=== PATIENT | female | born 1945 | race Caucasian/White ===

== ENCOUNTER → 2024-11-02 11:15 | Outpatient (REF) | payer OTHER, SELFPAY ==
[2024-11-02 12:02] LABS: Hematocrit 42.2 % (37.0-47.0); Hemoglobin 13.9 g/dL (12.0-16.0); Mean Corp Hgb Conc. 32.9 g/dL (33.0-37.0); Mean Corpuscular Volume 97.7 fL (81.0-99.0); Nucleated Red Blood Cells % 0 %; Platelet Count 217 10^3/uL (130-400); Red Cell Dist. Width 12.4 % (11.5-14.5)
[2024-11-02 12:54] LABS: Blood Urea Nitrogen 13 mg/dl (7-17); Calcium 10.2 mg/dl (8.4-10.2); Carbon Dioxide 28 mmol/L (22-30); Chloride 104 mmol/L (98-107); Glucose 97 mg/dl (70-99); Potassium 5.1 mmol/L (3.5-5.1); Sodium 139 mmol/L (135-145); eGFR > 60.00
== END ==
LOC: REG 11:15
PROVIDERS: ATTENDING PHYSICIAN Thoracic Surgery (Cardiothoracic Vascular Surgery); FAMILY PHYSICIAN Internal Medicine
DX: I35.0 Nonrheumatic aortic (valve) stenosis (principal); Z01.810 Encounter for preprocedural cardiovascular examination
CPT/HCPCS: 36415; 80048; 85025

== ENCOUNTER → 2024-11-08 09:28 | Outpatient (REF) | payer OTHER, SELFPAY | LOC: RAD 09:28 | PROVIDERS: ATTENDING PHYSICIAN Nurse Practitioner Adult Health | DX: I35.0 Nonrheumatic aortic (valve) stenosis (principal) | CPT/HCPCS: 74174; 75572; Q9967 ==

== ENCOUNTER 2024-11-20 07:16 | Day surgery (SDC) | payer OTHER, SELFPAY ==
[2024-11-20 07:35] VITALS: BMI 27.6
[2024-11-20 07:36] VITALS: BP 129/68
[2024-11-20] MEDS: LOW STRENGTH ASPIRIN 81 MG PO (08:23)
[2024-11-20] MEDS: NSS 205 ML IV (08:25)
[2024-11-20 10:10] VITALS: BP 125/70
[2024-11-20 10:41] VITALS: BP 128/65
[2024-11-20 11:11] VITALS: BP 110/67
[2024-11-20 11:41] VITALS: BP 129/67
[2024-11-20 11:58] VITALS: BP 140/66
--- NOTE | 2024-11-20 20:06 | ITS.CL.PN ---
[employer] - Procedure Note
Procedure
Procedure Note:
CARDIAC CATHETERIZATION REPORT
Date of Procedure: 11/20/2024
Referring: Dr. Elvis Leavitt MD
Indication: Symptomatic severe aortic valve stenosis
PROCEDURE(S)
1. left heart catheterization
2. coronary angiography
ACCESS: 6F right radial artery (closure: radial band)
CATHETERS
1. 6F JR4
2. 6F JL3.5
MODERATE SEDATION: 25 minutes of moderate sedation was utilized. An independent veterinary medical officer was present to assist with and help manage the patient's level of consciousness and physiologic status.
HEMODYNAMIC DATA
LV 183/13 (EDP 25) mmHg
AO 130/61 (mean 90) mmHg
CORONARY ANGIOGRAPHY
Dominance: right
LM: large, normal
LAD: large vessel giving rise to a large diagonal branch and wrapping around the apex. There is mild non-obstructive disease.
LCx: large vessel that gives rise to a small OM1/ramus, small OM2, medium-caliber OM3, small LPL1, and small LPL2. There is mild non-obstructive disease.
RCA: large vessel that gives rise to a small RPDA and several small RPL branches. There is mild non-obstructive disease.
RADIATION: dose 119 mGy; DAP 7.5 Gy*cm2; fluoroscopy time 4.8 min
CONCLUSIONS
1. non-obstructive coronary artery disease as described
2. severe aortic stenosis based on peak-peak gradient of 47 mmHg with elevated LVEDP 25 mmHg
RECOMMENDATIONS
1. primary prevention of CAD
2. proceed with TAVR
Copy to: Dr. Isaac Hutchinson (journalists and other writers); Dr. Ginna Hartmann MD (PCP)
Signed: Ector Regaan MD, PhD
== END 2024-11-20 13:20 | disposition home or self-care (01) ==
LOC: CATH 07:16
PROVIDERS: ATTENDING PHYSICIAN Student in an Organized Health Care Education/Training Program; FAMILY PHYSICIAN Internal Medicine; OTHER PHYSICIAN Internal Medicine Cardiovascular Disease
DX: I35.0 Nonrheumatic aortic (valve) stenosis (principal); I25.10 Atherosclerotic heart disease of native coronary artery without angina pectoris; I44.4 Left anterior fascicular block; E78.5 Hyperlipidemia, unspecified; K21.9 Gastro-esophageal reflux disease without esophagitis; Z82.49 Family history of ischemic heart disease and other diseases of the circulatory system; Z79.82 Long term (current) use of aspirin
CPT/HCPCS: 99152; 99153; C1894; 93005; 93458; Q9967

== ENCOUNTER 2024-12-13 09:20 | Inpatient (IN) | payer OTHER, SELFPAY ==
--- NOTE | 2024-12-04 13:16 | HPS.HSE ---
Family Physician
-
Family Physician: Ginna Rahman
Chief Complaint
-
Fatigue
PreTAVR evalution
History of Present Illness
Ginna Conley is a very pleasant 79-year-old female who has been followed by cardiology�at [facility] (Dr. Isaac Hutchinson) for severe aortic valve stenosis secondary to heavily calcified and restricted bicuspid aortic valve with a
peak/mean gradient of 72/46 mmHg. ESTHER on the echo study from 10/02/2024 came up with a measurement of 0.6 with trace aortic valve insufficiency. There was also a trace degree of mitral valve insufficiency and the report reads some mild prolapsing.
From a symptom standpoint she denies CP, palpitations, PND, orthopnea, TALBOT or edema. Her does feel she has slowed down over the past several months. They walk regularly for exercise and no longer do hills and choose to walk in the mall
instead. Patient was reviewed with the heart team on 11/16/2024 and recommended for TF TAVR utilizing a 26mm S3.
Confirmed medication list and Ms. Conley will continue 81 mg aspirin including the morning of TAVR before her [address] [facility]. Reviewed the risks of the procedure as discussed in consult with Dr. Leavitt including ppm, stroke, and
vascular injury. Allowed for and answered questions to the best of my ability.
Medical History
Past Medical History
Past Medical History: Reports Valvular Disease (aortic stenosis) and Other (hyperlipidemia, GERD, Sciatica, tinnitus, mildly dilated aorta, RBBB, LAFB)
Past Surgical History: Reports Cholecystectomy, Orthopedic (bilateral hip replacements) and Other (cataract surgery, LAURA)
Social History
Tobacco: Non-smoker
Alcohol: None
Drug: None
Personal:
Living: With Family
Employment: Retired
Family History
Family History: Early CAD and CAD
Allergies / Home Medications
Allergies reflects when Allergies were last updated in [employer].
NKDA
Home Medications with original date entered in [employer]
Acetaminophen 325 MG Tablet 2 tablet as needed Orally every 6 hrs
Aspirin 81 mg daily
Atorvastatin Calcium 20 MG Tablet 1 tablet Orally Once a day
Calcium 600 MG Tablet 1 tablet with meals Orally daily
Fiber Adult Gummies(Fiber) 2 GM Tablet Chewable as directed Orally
Multivitamin(Multiple Vitamin) - Tablet 1 tablet Orally Once a day
Premarin , Notes to Pharmacist: 0.5 oz twice a week
Allergy/Medication List:
NKDA
Review of Systems
-
History Source: Patient
A 12 point ROS was completed and negative except as noted: Yes
Constitutional: Reports Fatigue
Physical Exam
Physical Exam
General: Well Developed, Well Nourished, No Apparent Distress and Comfortable
HEENT: NormoCephalic
Respiratory: Clear
Cardiac: S1/S2, Regular Rhythm and Murmur (II/ KAUSHIK)
Breast: Deferred by me
GI: Soft, Non Tender and Non Distended
Rectal: Deferred by Provider
Genito-urinary: Deferred by me
Musculoskeletal: No Edema
Skin: Warm and Dry
Neuro: Awake, Alert, Oriented and AO x 3
Psych: Calm
Data Reviewed
-
CT Scan: Report Reviewed by me and Discussed with Physician (Reviewed with the heart team)
Medical Tests (Nuc Med, Echo, EKG etc): Report Reviewed by me and Discussed with Physician (echocardiogram and cardiac catheterization reviewed with the heart team)
Lab Data: Labs Reviewed by me
Old Records: Reviewed
Impression/Plan
-
IMPRESSION/PLAN:
Aortic stenosis: TF TAVR planned with DRs. Leavitt and Wilberto utilizing a 26 mm S3
Continue aspirin
POD#1/#30 echocardiogram
Cardiac rehab consult
Labs
-
Labs:
WBC 4.9 10^3/uL (4.8-10.8) 12/05/24 09:03
RBC 4.13 10^6/uL (4.20-5.40) L 12/05/24 09:03
Hgb 13.5 g/dL (12.0-16.0) 12/05/24 09:03
Hct 40.7 % (37.0-47.0) 12/05/24 09:03
Plt Count 217 10^3/uL (130-400) 12/05/24 09:03
Sodium 139 mmol/L (135-145) 12/05/24 09:03
Potassium 4.9 mmol/L (3.5-5.1) 12/05/24 09:03
Chloride 107 mmol/L (98-107) 12/05/24 09:03
Carbon Dioxide 27 mmol/L (22-30) 12/05/24 09:03
BUN 14 mg/dl (7-17) 12/05/24 09:03
Creatinine 0.7 mg/dL (0.6-1.0) 12/05/24 09:03
eGFR > 60.00 12/05/24 09:03
Glucose 103 mg/dl (70-99) H 12/05/24 09:03
Calcium 9.8 mg/dl (8.4-10.2) 12/05/24 09:03
Ien-Y-Knpicmqrsde Pept 176 pg/ml 12/05/24 09:03
Albumin 4.7 g/dl (3.5-5.0) 12/05/24 09:03
[2024-12-05 08:53] VITALS: BMI 28.0
[2024-12-05 10:01] LABS: Urine Character Clear (Clear)
[2024-12-05 10:02] LABS: Hematocrit 40.7 % (37.0-47.0); Hemoglobin 13.5 g/dL (12.0-16.0); Mean Corp Hgb Conc. 33.2 g/dL (33.0-37.0); Mean Corpuscular Volume 98.5 fL (81.0-99.0); Nucleated Red Blood Cells % 0 %; Platelet Count 217 10^3/uL (130-400); Red Cell Dist. Width 12.4 % (11.5-14.5)
[2024-12-05 10:10] LABS: INR 0.89; PT 12.6 Sec (11.4-14.6)
[2024-12-05 10:35] LABS: ALT (SGPT) 17 U/L (0-35); AST (SGOT) 29 U/L (14-36); Albumin 4.7 g/dl (3.5-5.0); Alkaline Phosphatase 73 U/L (38-126); Blood Urea Nitrogen 14 mg/dl (7-17); Calcium 9.8 mg/dl (8.4-10.2); Carbon Dioxide 27 mmol/L (22-30); Chloride 107 mmol/L (98-107); Estimated Creatinine Clearance 60 ml/min; Glucose 103 mg/dl (70-99); Potassium 4.9 mmol/L (3.5-5.1); Sodium 139 mmol/L (135-145); Total Protein 7.2 g/dl (6.3-8.2); eGFR > 60.00
[2024-12-05 10:43] LABS: Urine Squamous Cell 0-2 /LPF (Few); Urine Urothelial Cell 0-2 /LPF (FEW)
[2024-12-05 10:44] LABS: Urine White Cell 0-2 /HPF (0-5)
[2024-12-05 11:16] LABS: Glycohemoglobin (HgbA1c) 5.5 % (4.0-5.6)
--- NOTE | 2024-12-05 12:06 | CM ---
spoke to pt in PAT, she is prev indep, lives with her husb in a split level home with no steps toenter. she has a cane and a walker at home if needed. she is agreeable to a f/u visit for [facility] ct transitional care nurses after dc. she has the TAVR
educ book, soap and instructions. cm role explained and all questions answered. plan is for dc TAVR 12/13.
[2024-12-13] VITALS (32 sets, daily range): BP systolic 81–138; BP diastolic 42–66
--- NOTE | 2024-12-13 11:47 | W.CVOR.SURPR ---
CVOR Surgeon Immed Pre Op
-
I have examined this patient prior to performance of the scheduled procedure.
The patient's condition is unchanged from the time of the dictated/written History and
Physical and the patient is able to undergo the scheduled procedure.
TF TAVR
Full Rescue
--- NOTE | 2024-12-13 12:23 | CM ---
Chart reviewed. Patient is in the OR today. Patient is independent of ADLS, lives with her in a split level, 0 BILLIE, 0 DME but has a SPC and RW. Plan is for the patient to return home with CT Transitional RN.
[2024-12-13] MEDS: ANCEF 10 IV (12:38)
[2024-12-13 13:36] LABS: ACT-LR - POC 318 Seconds (116-155)
--- NOTE | 2024-12-13 14:03 | ITS.CL.TAVR ---
Parts Processor - TAVR Report
TAVR PRocedure
Procedure Report:
TRANSCATHETER AORTIC VALVE REPLACEMENT REPORT
Date: 12/13/2024
Referring physician: Isaac Hutchinson M.D.
Preop diagnosis: Severe aortic valve stenosis, functionally bicuspid.
Postop diagnosis: Severe aortic valve stenosis, functionally bicuspid.
Procedure: Aortic balloon valvuloplasty using a #22 Avelar valvoplasty balloon, Transcatheter aortic valve replacement (TAVR) using a #26 Avelar CASEY S3 Ultra Resilia THV.
Operators: Roscoe Ladd DO, Elvis Leavitt M.D., Mary Nice M.D., Venancio Aggarwal M.D. (PGY-2)
Findings: Severely calcified and stenotic aortic valve.
Anesthesia: Conscious sedation was provided by the anesthesia staff.
Estimated blood loss: Negligible.
Complications: None.
Condition: Stable
Procedure:
The patient was brought to the cardiac electrical laboratory technician after consent and was prepped and draped in standard sterile fashion. Conscious sedation was provided by the anesthesia staff. After a 'Time Out,' bilateral common femoral arteries and the left
common vein were access using a modified Seldinger technique with a micropuncture kit under ultrasound guidance. A 6 Libyan sheath was placed in the left femoral vein. Angiography performed through the micropuncture sheath confirmed satisfactory
arterial placement in the left common femoral artery. The micropuncture sheath was replaced with a 6Fr sheath in the left DROP HAMMER OPERATOR HELPER. Angiography through the micropuncture kit confirmed satisfactory arterial placement in the right common femoral artery.
The right DROP HAMMER OPERATOR HELPER was dilated with an 8FR dilator and preclosed with two Perc-Close devices. An 8Fr sheath was placed in the RCFA. A temporary pacing wire was advanced through the left femoral vein and into the right ventricle. The pacemaker
demonstrated good capture and was set to back up. A 5Fr pigtail catheter was advanced through the left femoral sheath and seated in the right coronary cusp. Angiography confirmed co-planar angles.
An AL-1 catheter was advanced through the 8Fr sheath, the J wire was exchanged for an Amplatz Extra-Stiff wire and the catheter and the 8 Fr sheath was removed. The 14 Fr Avelar E-Sheath was inserted over the wire and into the descending aorta.
Heparin 6000 units was given. The CASEY S3 was prepared on the back table. Orientation was confirmed by both physicians. The AL-1 catheter was re-advanced through the E-sheath to the level of the ascending aorta. The Extra-Stiff wire was
removed and a soft tip straight wire was advanced through the AL-1. The straight tip wire was used to cross the aortic valve and the catheter was advanced into the left ventricle. The straight wire was removed. Left ventricular pressure was
measured. An Amplatz Extra-Stiff wire with curved proximal end was advanced through the catheter and into the left ventricular apex. The catheter was removed. ACT was checked and confirmed to be > 250 seconds.
A #22 Avelar valvuloplasty balloon was advanced over the Extra-stiff wire and into the aortic annulus. Valvuloplasty was performed under rapid pacing with good balloon expansion. The valvuloplasty balloon was removed.
The valve was advanced over the Extrastiff wire and into the descending aorta. The balloon was pulled back and the valve was mounted on the balloon. The valve was advanced through the aortic arch and into the aortic valve annulus. The pusher
device was withdrawn to allow for balloon expansion. Low volume aortography confirmed good position of the valve. The valve was deployed during rapid ventricular pacing. Echocardiography and aortography confirmed a good result with trace aortic
valve insufficiency and a 2 mmHg mean gradient. The valve deployment system was removed. The patient demonstrated evidence of complete heart block with junctional escape. Blood pressure improved with pacing to 60 bpm. The Avelar E-Sheath was
then removed and hemostasis obtained with the two Perc-Close sutures. Final angiography demonstrated no evidence of ileofemoral dissection/perforation and good runoff below the common femoral artery. The pigtail catheter was removed. The left
femoral artery sheath was removed using a 6 Libyan Angio-Seal. The left femoral venous sheath and pacemaker were left in place for chronotropic support. At the end of the case, the patient was showing evidence of spontaneous sinus rhythm and AV
node conduction, alternating with high-grade heart block. The decision was made to maintain the pacemaker for at least the next hour to determine if the nikolski conduction would return or if pacemaker would become necessary. Protamine 30 mg was
administered.
Radiation
Dose (mGy): 117
DAP (cm2.Gy): 12.6
Fluoroscopy time (minutes): 12.8
TAVR Echo Gradient (mmHg): 2
LV (s/x, mmHg): 146/17
TAVR Cath Gradient (mmHg): Not obtained.
Conclusions:
1. Successful placement of #26 Casey S3 Ultra aortic valve via right transfemoral approach with no acute complications.
2. Complete heart block after valve deployment with partial resolution. Temporary pacemaker left in place for further evaluation.
Roscoe Ladd DO, FACC, FACP
Copy to: Isaac Hutchinson M.D., Ginna Rahman M.D.
--- NOTE | 2024-12-13 14:32 | W.PN.CT.SURG ---
CT Surgery Operative Note
-
OPERATIVE REPORT
Preoperative Diagnosis: Severe aortic valve stenosis, bicuspid aortic valve, symptomatic
Postoperative Diagnosis: Same
Procedure(s) Performed: Right trans femoral TAVR with a 26mm Avelar TAVR valve
Date of Procedure: 12/13/2024
Comorbidities:
1. Severe aortic stenosis, symptomatic
2. Bicuspid aortic valve
3. Mild MR, MVP
4. Right bundle branch block
5. Left anterior fascicular block
6. Hyperlipidemia
7. Ascending aorta very mildly dilated at 3.7 cm
Cardiac Surgeon: Elvis Leavitt MD, MS and Mary Nice MD, MPH
Prom Burn Off Operator: Barrett Ladd MD
Anesthesia: Conscious Sedation and Local Analgesia
EBL: 100 cc
Products: none
Implant: 26 mm Avelar Resilia, SN: [id number]
Indication(s) for Procedures: 79-year-old Female with symptomatic severe aortic stenosis. PG/M/46 mmHg, ESTHER 0.6. CT-TAVR protocol revealed acceptable anatomy for TAVR access and implantation.
Start time: 1258 hrs
Deployment time: 1331 hrs
End time: 1350 hrs
Radiation Dose (mGy): 117
DAP (cm2.Gy): 12.6
Fluoroscopy time (minutes): 12.8
Contrast volume (ml): 78
TAVR gradient (mmHg): 2 mmHg
Heparin Dose: 6000 units
Protamine Dose: 30 mg
Final Valve Positionin/10
LVEPD: 18 mmHG
Findings: Preoperative LVEF was 60�65% and was 60-65% following TAVR without inotropic support. Function was overall normal without regional wall motion abnormalities or dyskinesia. The aortic valve was well seated without detectable PVL and mean
gradient across the new valve was 2 mmHg. Patient with known preoperative history of right bundle branch block and left anterior fascicular block following deployment in valve patient was noted to be in complete heart block with intermittent
junctional escape rhythm therefore temporary pacing wires were left in place for monitoring and evaluation of need for permanent pacemaker. There was successful placement of 26 mm TAVR valve without acute complications.
Access:
1. Device -right INSPECTOR EXPERIMENTAL ASSEMBLY, perclose x 2
2. Pigtail -left INSPECTOR EXPERIMENTAL ASSEMBLY [+ 6Fr angioseal]
3. Transvenous Pacer -left femoral vein, left in place
Description of Procedure: The patient was taken to the lift slab operator. Their identity and procedure to be performed were verified and they were positioned supine on the lift slab operator table. Induction via conscious sedation. The patient was then prepped and
draped from chin to thigh in a sterile fashion. A preoperative time-out was performed with all members of the team present. Arterial and venous access was performed using fluoroscopy and ultrasound guidance with micropuncture and Seldinger
technique. Two perclose devices were used on the device side followed by access to the aorta with a stiff wire to facilitate E-sheath placement. Heparin was given. A stiff straight wire and AL-1 catheter was used to cross the aortic valve. An LVEDP
was measured. An ACT of >250 was achieved. A predeployment balloon valvuloplasty was performed with rapid pacing at 180 bpm using a 22 mm true sized balloon. The stiff wire was exchanged for an extra stiff coiled tip wire. The valve was prepped and
mounted on to the device carrier. We verified x 3 that the valve was mounted in the correct orientation with the skirt of the valve directed toward the tip of the device carrier. We advanced the device into the descending thoracic aorta where the
valve was then mounted onto the balloon under fluoroscopy. The device was flexed and advanced over the arch into the root and positioned across the aortic valve. Contrast fluoroscopy was used to visualize the prosthesis across the valve and to guide
positioning. A pigtail catheter in the RCC was used as a guide. We aimed to have the bottom of the device marker at the annular hinge point. The device sheath was pulled back. We performed a quick pre-deployment time out. The pacer was turned on and
had capture. Blood pressure fell accordingly, angiography was done to verify the intended final placement and the valve was deployed with 5 seconds of rapid pacing to nominal volume. The balloon was deflated and the pacer was turned down to a backup
rate, the patient was noted to be in complete heart block with intermittent junctional escape rhythm. We had recovery of vitals. The device carrier was unflexed and positioned back in the descending thoracic aorta. A transthoracic echocardiogram was
performed. The device was removed from the E-Sheath maintaining wire access followed by removal of the E-sheath as we cinched down the perclose devices. There was acceptable hemostasis. The pigtail was withdrawn into the descending/abdominal and
completion aortogram with runoff run-off angiography was performed. There was no stenosis or dissection of bilateral iliofemoral systems. The temporary pacing wires were left in place given the complete heart block, decision made to observe and
later decide if permanent pacemaker would be required. There was acceptable hemostasis of bilateral groins and manual pressure was held following wire removal. Low dose protamine was administered after checking another ACT.
All instrument, sponge, and needle counts were confirmed to be correct x 2 at the end of the operation. The patient was transferred to the cardiac intensive care unit in stable condition.
I, Dr. Mary Nice, was present, scrubbed for, and performed all critical elements of this procedure.
Mary Nice MD, MPH
Cardiothoracic Surgeon
[facility]
This operative dictation was created using the [employer] dictation system. Please excuse any grammatical, typographical, or 'sound alike' errors
[2024-12-13] MEDS: NSS 500 VEN SHEATH (14:39)
[2024-12-13] MEDS: ANCEF IV (14:40)
[2024-12-13] MEDS: LEVOPHED 250 IV (14:40)
--- NOTE | 2024-12-13 15:25 | PTCARENOTE ---
Addendum entered by Carmen España RN 12/13/24 15:56:
Correction LFV Sheath for pacing.
Original Note:
Received pt from labor crew supervisor via bed; pt AAOx3 and resting comfortably in bed; NSR on monitor and vSS; PIV x2 patent; RFV sheath with temporary pacing wire set to back up 60/20/0.8 and no pacing noted on monitor; lungs diminished; positive bowel
sounds; pure wick connected to pt and pt DTV; palpable pulses throughout; no edema noted; B/L groin sites C/D/I; see nursing documentation for further details.
--- NOTE | 2024-12-13 16:27 | PTCARENOTE ---
Pt stated 'I feel like i have to urinate however I cannot.'; bladder scanned pt for 896; straight cath x1 for 850mls of clear yellow urine; pure wick replaced; pt continues bedrest.
[2024-12-13] MEDS: ANCEF 5 IV (21:04)
[2024-12-13] MEDS: LIPITOR 20 MG PO (21:16)
[2024-12-13] MEDS: TYLENOL 650 MG PO (21:17)
--- NOTE | 2024-12-13 21:30 | PTCARENOTE ---
Report received from CHRIS Morales. Walking rounds done. BLE Vascular and Neuro checks performed per protocol and prn. See flowsheets. Pt alert, oriented x 4, awake. Equal strength x 4. No drift BUE. LLE with limb restriction due to L Fem venous sheath
and temp wire with Temp pacing-VVI. . Leg straight at all times, HOB flat. Denies numbness/tingling. Facial symmetry present. Speech clear. Pt on room air. Sats 96%. BBS present. Decreased B bases. CDB encouraged. Audible heart tones. Pt in SR.
Noted to have multiple PACs briefly at 1900 during shift change. ? AF. Some V-paced beats present. PA aware. Temp PM settings. Rate 40, mA 20, Sens 0.8. Pt normotensive. Levo gtt remains off. R groin and L groin checks with no hematoma, soft,
dressing dry, intact. BLE warm, pink. Palp DP pulses. No c/o pain. Pt turned briefly. No bruising to back/flank areas bilaterally. Belly soft, nontender. Normoactive bs x 4. Pt is due to void at ~ 2300. No c/o urgency of discomfort. Purewick intact.
See flowsheet. Tylenol 650 mg po at 2116 for c/o chronic, mild pain to L shoulder and mid-lower back. Pt attributes pain to chronic 'arthritis' pain & states she takes Tylenol at home for this. L fem venous sheath with NS at KVO rate, 10 mls/hr.
Ongoing plan of care.
[2024-12-14] VITALS (26 sets, daily range): BP systolic 109–147; BP diastolic 48–97; BMI 27.8
[2024-12-14] MEDS: BENADRYL 25 MG PO (00:40)
--- NOTE | 2024-12-14 00:45 | PTCARENOTE ---
Pt attempted to void on her own at 2300. Water running. Pt given extra time to concentrate and focus on voiding. Bladder scanned at 2330 for 508 mls. Pt then stated she felt she voided a small amount but no UO in urine canister and pad dry
underneath her. Discussed with PA. Pt straight cath'ed-attempt x 2. 500 mls urine collected at 0030. Pt denies pain. Repositioned in bed. Benadryl 25 mg po given for insomnia. VS done. Vascular and Neuro checks done without change from prior
assessments.
[2024-12-14 02:59] LABS: Hematocrit 34.8 % (37.0-47.0); Hemoglobin 11.8 g/dL (12.0-16.0); Mean Corp Hgb Conc. 33.9 g/dL (33.0-37.0); Mean Corpuscular Volume 98.0 fL (81.0-99.0); Platelet Count 148 10^3/uL (130-400); Red Cell Dist. Width 12.3 % (11.5-14.5)
--- NOTE | 2024-12-14 03:00 | PTCARENOTE ---
Labs drawn and sent. EKG done and shown to GERARDO Bueno. Pt attempting to go to sleep. No c/o pain. Neuro and Vascular checks done.
[2024-12-14 03:12] LABS: Blood Urea Nitrogen 12 mg/dl (7-17); Calcium 9.3 mg/dl (8.4-10.2); Carbon Dioxide 27 mmol/L (22-30); Chloride 107 mmol/L (98-107); Estimated Creatinine Clearance 70 ml/min; Glucose 100 mg/dl (70-99); Potassium 4.3 mmol/L (3.5-5.1); Sodium 138 mmol/L (135-145); eGFR > 60.00
--- NOTE | 2024-12-14 07:00 | PTCARENOTE ---
Pt bladder scanned for 641 mls urine. Discussed with GERARDO Bueno. Order given to straight cath pt. Report to CHRIS Alvarez. Vascular and Neuro checks remain unchanged.
--- NOTE | 2024-12-14 07:45 | PTCARENOTE ---
Pt straight cathed for 575ml clear yellow urine. Pt tolerated.
--- NOTE | 2024-12-14 07:48 | W.PN.CD ---
Today's Communication / Plan
-
MCOT.
Post procedure echocardiogram.
Discharge planning.
Impression / Plan
-
Impression/Plan: 79 y/o male with HLD, RBBB/LAFB and severe aortic valve stenosis admitted for elective TAVR.
#Severe
-Chronic, progressive.
-S/P #26 Avelar CASEY S3 Resilia TAVR via right common femoral approach.
-Complete heart block immediately after TAVR, resumption of NSR with AV conduction by the time she went to CVICU.
-Telemetry shows intermittent, rare paced beats, none in the last 12 hours.
-Temporary wire in place overnight, pulled this morning without incident.
-Bilateral access sites are C/D/I.
-Post procedure echo pending.
-Antithrombotic therapy with aspirin.
-MCOT prior to discharge.
#HLD
-Chronic, progressive.
-Continue atorvastatin 20 mg daily.
#PPx
-SCD's for DVT/VTE.
-No role for PPI.
#Dispo
-CVICU status.
-Full code.
-Disharge planning.
Subjective/Interval History:
TAVR yesterday.
Transient CHB post TAVR, resolved by the time she went to CVICU.
Temp wire left in place.
Telemetry shows rare PPM use, none in the last 12 hours.
TPM pulled this morning without incident.
Urinary retention requiring straight cath.
DATA:
TAVR, 12/13/2024:
Conclusions:
1. Successful placement of #26 Casey S3 Ultra aortic valve via right transfemoral approach with no acute complications.
2. Complete heart block after valve deployment with partial resolution. Temporary pacemaker left in place for further evaluation.
Physical Exam
Vital Signs/Labs
Vital Signs
Temp Pulse Resp BP Pulse Ox
36.9 C 82 19 120/52 96
12/14/24 02:00 12/14/24 06:00 12/14/24 06:00 12/14/24 06:00 12/14/24 06:00
12/12/24 12/13/24 12/14/24
11:59 11:59 11:59
Actual Weight 67.9 kg
12/14/24 02:37
12/14/24 02:37
PT 12.6 Sec (11.4-14.6) 12/05/24 09:03
INR 0.89 12/05/24 09:03
12/05/24
09:03
Xvi-O-Ubkzhrjtfuh Pept 176
Physical Exam
Constitutional: No acute distress and Comfortable
EENT: Anicteric and Moist mucous membranes
Cardiovascular: Rhythm & rate is regular, Pedal edema is absent, JVD pressure is normal, S1S2 is normal and Murmur/rub/gallop absent
Respiratory: Respiratory effort normal, Lungs clear to auscul., Wheeze Absent, Crackles Absent and Rhonchi Absent
GI: Soft, Distention absent, Flat, Non tender and Normal bowel sounds
Neuro/Psych: AO x 3
Other: Cath Site (Bilateral femoral access sites are C/D/I.)
Data Reviewed
-
Date of Service: December 14, 2024
Medical Decision Making: Reviewed Test Results, Independent Historian Assessment and Test Interpretation
EKG: Tracing Personally Visualized and interpreted and Report Reviewed by me
Echo: Tracing Personally Visualized and interpreted and Report Reviewed by me
X-Ray/CT/US/MRI/NUC/PET: Image Personally Visualized and interpreted and Report Reviewed by me
Medical Tests (PFT, Pathology etc): Image Personally Visualized and interpreted and Report Reviewed by me
Labs: Labs Reviewed by me
Old Records: Reviewed
--- NOTE | 2024-12-14 08:10 | PTCARENOTE ---
Left femoral Venous sheath and venous temp pacer d/c by CT PLATE PAINTER at 0755. Manual pressure held by CT PLATE PAINTER and CT PA until 0810. Hemostasis achieved. +DP pulse, left groin site soft, dressing CDI. Pt educated on bedrest and lying flat after hemostasis. Pt
states understanding.
--- NOTE | 2024-12-14 08:10 | W.PN.UPDATE ---
Update Note
Progress Note Update
No pacing required since arrival in CVICU, maintaining SR. Left femoral transvenous pacing wire and sheath removed without difficulty. Hemostasis achieved with 20 minutes direct manual pressure. 4 x 4 gauze dressing applied. Bedrest x 4 hours.
--- NOTE | 2024-12-14 08:15 | PTCARENOTE ---
Pt assessed while she was lying flat in bed. Pt alert and oriented x4. Pt denies pain, shortness of breath, nausea, and numbness and tingling. FITZGERALD with equal strength throughout. No facial droop, tongue deviation. PERRLA 4mm brisk. SR with LBBB on
tele with rates in the 80s. BP 122/57. Heart tones audible. Bilateral radial and DP pulses palpable. No edema noted. POX 97% on RA. Lungs diminished in the bases. No cough noted. Abdomen soft, nontender. +BS. Pt states she feels hungry this morning.
Due to void 1345. Right groin puncture site soft, CDI. Left groin puncture sites soft, dressing CDI. Right forearm 20g and Left hand 20g PIV intact. See MAR for medication administration. See worklist for complete nursing assessment. Plan of care
reviewed and patient in agreement.
--- NOTE | 2024-12-14 08:19 | W.PN.CT ---
Today's Communication / Plan
-
-pod #1
-no significant issues overnight, hemodynamically and neurologically stable
-in nsr 70s with brief PAC runs overnight. No lv or pauses
-new LBBB and 1st degree AVB with transient CHB post TAVR- not on AVN blocking meds
-pw via L groin (VVI 40 backup)- consider d/c and monitor rhythm
-Echo today
-current meds (ASA, Lipitor)
-encourage IS
-continue to monitor rhythm
Assessment / Plan
-
- Severe symptomatic aortic valve stenosis, bicuspid aortic valve- s/p Right trans femoral TAVR with a 26mm Avelar TAVR valve on 12/13/24, pod #1
- Intraop complete heart block with junctional escape. At the end of the case, the patient was showing evidence of spontaneous sinus rhythm and AV node conduction, alternating with high-grade heart block- temporary pacing wire overnight
- Intraop TTE: LVEF 60-65% pre and postop, no wma. The aortic valve was well seated without detectable PVL and mean gradient across the new valve was 2 mmHg.
- Mild MR, MVP
- Hx Right bundle branch block
- Hx Left anterior fascicular block
- HTN/Hyperlipidemia
- Ascending aorta very mildly dilated at 3.7 cm
- EF 60-65%
- No significant CAD
- GERD
- b/l THR
- Acute postop new LBBB and 1st degree AVB with transient CHB
- Acute postop urinary retention- s/p straight cath x2
Discussed patient care with: Nursing and Care Team
Subjective
-
Date of Service: December 14, 2024
Objective Data
-
PT 12.6 Sec (11.4-14.6) 12/05/24 09:03
INR 0.89 12/05/24 09:03
Vital Signs
Vital Signs
Temp Pulse Resp BP Pulse Ox
98 F 88 22 112/58 95
12/14/24 00:00 12/14/24 00:00 12/14/24 00:00 12/14/24 00:00 12/13/24 22:00
CT Intake/Output/Weight
12/13/24 12/13/24 12/14/24
06:59 18:59 06:59
Intake Total 1447.5 / 1807.5 360 / 1807.5
Output Total 1750 / 2250 500 / 2250
Balance -302.5 / -442.5 -140 / -442.5
SaO2: 95
Physical Exam
-
General: Awake and AOx3
Cardiovascular: Regular rate & rhythm and No Rub
Respiratory: Clear
Incision: Other (groins are cdi, soft, nontender, no hematoma b/l. pw at L groin)
Extremities: Other (trace edema b/l, 2+ DPs b/l)
Abdomen: soft, nontender, nondistended, + bowel sounds
Data Reviewed
-
Lab Results: Results Reviewed
Medications: Active Meds Reviewed
Chest X-Ray: Report Reviewed and Image Reviewed
ECG: Report Reviewed and Image Reviewed
--- NOTE | 2024-12-14 10:16 | W.PN.ANS.POP ---
Anesthesia Post Operative
- Anesthesia Post Op Note
Vital Signs Stable-See Nursing Note: Yes
Airway Patent: Yes
Adequate Pain Control: Yes
Change in Mental Status: No
Current Postoperative Nausea & Vomiting: No
Anesthesia Complications: No
General Anesthetic Recall: No
Unplanned Admission: No
Post Op Hydration Adequate: Yes
[2024-12-14] MEDS: LOW STRENGTH ASPIRIN 81 MG PO (10:44)
--- NOTE | 2024-12-14 12:15 | PTCARENOTE ---
Pt bladder scanned for 427mL. Ambulated to the bathroom and voided 225ml clear yellow urine. CT CERTIFIED ART THERAPIST notified. Pt then ambulated to the chair. C/o dizziness, BP stable 137/55. POX 97% on RA. Noticed to be in and out of a 2nd degee type 2 AVB. EKG
obt[address] and CT CERTIFIED ART THERAPIST notified. Pt resting in the chair at this time.
--- NOTE | 2024-12-14 13:27 | CM ---
Chart reviewed. Patient is OOB sitting in the chair, at bedside. Patient is independent of ADLS, lives in a split level, 0 BILLIE, 0 DME but has a SPC and RW at home if needed. Plan is for the patient to return home with CT Transitional
RN. CM to follow
--- NOTE | 2024-12-14 15:49 | PTCARENOTE ---
Pt reassessed. Remains in 2nd degree type 2 heart block. BP stable 130/67. POX 96% on RA. PIV x2 intact. B/l ricardo soft, dressing CDI and b/l pedal pulses palpable. Reeducated patient on using call mclean for assistance and measuring urine. Pt states
shes in agreement.
--- NOTE | 2024-12-14 21:00 | PTCARENOTE ---
Patient received OOB in chair. Assisted to bathroom with minimal assistance. No void at this time. Patient assisted to bed. Patient A+A+Ox3. No neurological deficits noted. No c/o headache, dizziness or lightheadedness. No c/o pain or
discomfort. Lungs clear. No adventitious breath sounds noted. No c/o SOB. No TALBOT. Room air. SpO2 96%. Heart rate 50's. BBC. Heart block. EKG completed. Patient with no c/o chest pain, pressure or discomfort. Normoactive bowel sounds. No
BM. Patient assisted to bathroom - Voided 400 ml larry urine. Back to bed. Right and left groin dressings intact - No hematoma, bleeding or oozing noted - Positive circulation, sensation and mobility to bilateral lower extremities. Positive,
palpable pulses. Patient with no c/o back or flank pain. Assessment as documented.
[2024-12-14] MEDS: LIPITOR 20 MG PO (22:29)
[2024-12-15] VITALS (13 sets, daily range): BP systolic 106–128; BP diastolic 46–66; BMI 27.2
--- NOTE | 2024-12-15 00:30 | PTCARENOTE ---
Patient NPO after midnight. Patient sleeping without difficulty. No further changes from previous assessment.
--- NOTE | 2024-12-15 05:30 | PTCARENOTE ---
Patient A+A+Ox3. No neurological deficits noted. Ambulated to bathroom - +BM, +Void in toilet. Standing scale weight 67.5 kg. Patient given CHG bath and linens changed. Back to bed. Patient reading book. Resting in bed. Patient with no c/o
chest pain, pressure or discomfort. No c/o pain or discomfort. Bilateral groin dressings intact - No hematoma, bleeding or oozing - Positive circulation, sensation and mobility to bilateral lower extremities. Positive, palpable pulses. Patient
with no c/o back or flank pain. Asessment/Interventions as documented.
--- NOTE | 2024-12-15 06:42 | W.PN.CT ---
Today's Communication / Plan
-
-pod #2
-in nsr with complete heart block overnight, hr 40s-50s. Hemodynamically and neurologically stable
-NPO for pacer this am
Assessment / Plan
-
- Severe symptomatic aortic valve stenosis, bicuspid aortic valve- s/p Right trans femoral TAVR with a 26mm Avelar TAVR valve on 12/13/24, pod #2
- Intraop complete heart block with junctional escape. At the end of the case, the patient was showing evidence of spontaneous sinus rhythm and AV node conduction, alternating with high-grade heart block- temporary pacing wire overnight
- Intraop TTE: LVEF 60-65% pre and postop, no wma. The aortic valve was well seated without detectable PVL and mean gradient across the new valve was 2 mmHg.
- Mild MR, MVP
- Hx Right bundle branch block
- Hx Left anterior fascicular block
- HTN/Hyperlipidemia
- Ascending aorta very mildly dilated at 3.7 cm
- EF 60-65%
- No significant CAD
- GERD
- b/l THR
- hx bladder Urolift per pt
- Acute postop new LBBB and 1st degree AVB with transient CHB
- Acute postop urinary retention- s/p straight cath x3
- Acute postop CHB since 12/14
Discussed patient care with: Nursing and Care Team
Subjective
-
Date of Service: December 15, 2024
Objective Data
-
Lab Results
12/14/24 02:37
12/14/24 02:37
PT 12.6 Sec (11.4-14.6) 12/05/24 09:03
INR 0.89 12/05/24 09:03
Vital Signs
Vital Signs
Temp Pulse Resp BP Pulse Ox
98.5 F 52 16 120/47 96
12/15/24 05:30 09/06/25 05:30 12/15/24 05:30 12/15/24 05:30 12/15/24 05:30
CT Intake/Output/Weight
12/14/24 12/14/24 12/15/24
06:59 18:59 06:59
Intake Total 360 / 1807.5 0 / 240 240 / 240
Output Total 500 / 2250 800 / 1400 600 / 1400
Balance -140 / -442.5 -800 / -1160 -360 / -1160
SaO2: 96
Physical Exam
-
General: Awake and AOx3
Cardiovascular: Regular rate & rhythm, No Murmurs and No Rub
Respiratory: Clear
Incision: Other (groins are cdi, soft, nontender, no hematoma b/l)
Extremities: Other (trace edema, 1+ DPs b/l)
Data Reviewed
-
Lab Results: Results Reviewed
Medications: Active Meds Reviewed
Chest X-Ray: Report Reviewed and Image Reviewed
ECG: Report Reviewed and Image Reviewed
--- NOTE | 2024-12-15 08:15 | PTCARENOTE ---
Resumed care of patient. Pt assessed while she was lying in bed. Pt alert and oriented x4. Forgetful at times. Bed alarm in place. FITZGERALD with equal strength. PERRLA 4mm brisk. No facial droop, tongue deviation noted. SB with rates in the 50s.
Occasional CHB noted. Pt asymptomatic. BP 128/48. Bilateral radial and DP pulses palpable. +1 lower extremity edema noted. POX 96% on RA. Lungs clear. No cough. Abdomen soft, round, nontender. +BS. +BM this Am. Pt able to get OOB to void with stand
by assist. Voided adequate amounts of larry urine. Bilateral groin sites soft, nontender, dressings CDI. Right forearm and left forearm PIVs intact. See MAR for medication administration. See worklist for complete nursing assessment. Plan of care
reviewed and patient in agreement.
[2024-12-15] MEDS: LOW STRENGTH ASPIRIN 81 MG PO (08:47)
--- NOTE | 2024-12-15 09:00 | PTCARENOTE ---
pie bakery laborer at bedside to take patient for PPM.
--- NOTE | 2024-12-15 10:52 | W.PN.CD ---
Today's Communication / Plan
-
- PPM today
Impression / Plan
-
Impression/Plan: 79 y/o male with HLD, RBBB/LAFB and severe aortic valve stenosis admitted for elective TAVR.
# Advanced heart block
- 2:1 AV block.
- Urgent PPM today
- Medronic conduction system pacing - dual chamber pacer.
- DDDR 60-130 bpm
#Severe
-Chronic, progressive.
-S/P #26 Avelar CASEY S3 Resilia TAVR via right common femoral approach.
-Complete heart block immediately after TAVR, resumption of NSR with AV conduction by the time she went to CVICU.
-Post procedure echo 12/14/24Hyperdynamic LV - LVEF >70%. s/p Avelar Casey aortic valve prosthesis -mean gradient 6 mmHg. No regurgitation seen.
-Antithrombotic therapy with aspirin.
#HLD
-Chronic, progressive.
-Continue atorvastatin 20 mg daily.
#PPx
-SCD's for DVT/VTE.
-No role for PPI.
#Dispo
-CVICU status.
-Full code.
-Disharge planning.
Subjective/Interval History:
TAVR 12/13/24
Developed high degree AV block with intermittent complete heart block.
Severe bradycardia with junctional escape to 40s.
PPM plan for today.
DATA:
TAVR, 12/13/2024:
Conclusions:
1. Successful placement of #26 Casey S3 Ultra aortic valve via right transfemoral approach with no acute complications.
2. Complete heart block after valve deployment with partial resolution. Temporary pacemaker left in place for further evaluation.
Physical Exam
Vital Signs/Labs
Vital Signs
Temp Pulse Resp BP Pulse Ox
98.2 F 52 16 128/48 96
12/15/24 08:00 12/15/24 08:21 12/15/24 08:00 12/15/24 08:21 12/15/24 08:21
12/14/24 12/15/24 12/16/24
06:59 06:59 06:59
Actual Weight 67.9 kg 67.5 kg
12/14/24 02:37
12/14/24 02:37
PT 12.6 Sec (11.4-14.6) 12/05/24 09:03
INR 0.89 12/05/24 09:03
12/05/24
09:03
Nbb-A-Aoqcdikpbty Pept 176
Physical Exam
Constitutional: No acute distress and Comfortable
EENT: Anicteric and Moist mucous membranes
Cardiovascular: Rhythm & rate is regular, Pedal edema is absent, JVD pressure is normal and Systolic murmur present
Respiratory: Respiratory effort normal, Wheeze Absent and Crackles Absent
GI: Soft, Non tender and Normal bowel sounds
Neuro/Psych: Alert, Oriented, AO x 3 and Motor deficits absent
Other: Cath Site and Cardiac Device Site
Data Reviewed
-
Date of Service: December 15, 2024
Medical Decision Making: Reviewed Test Results, Test Interpretation and Review of Case with other Provider
EKG: Tracing Personally Visualized and interpreted
X-Ray/CT/US/MRI/NUC/PET: Image Personally Visualized and interpreted
Labs: Labs Reviewed by me
Old Records: Reviewed
Critical Care Time (in minutes): 35
--- NOTE | 2024-12-15 10:58 | ITS.CL.PACE ---
Addendum entered and electronically signed by Daja Zimmerman MD 12/17/24 12:38:
Correction
Please correct the date of procedure which was listed strong. The correct information is as following
Date of procedure: 12/15/2024
Original Note:
Cavalry Officer - Pacemaker Implant
Pacemaker Implant
Procedure Report:
Conduction system (Left Bundle Branch) pacing dual chamber Permanent Pacemaker Placement:
Ms. Conley is a 79-year-old woman with history of severe aortic stenosis status post TAVR 12/13/24 with intermittent complete heart block is in need for a pacemaker.
Indications:
Complete heart block.
Date of the Procedure: 03/29/24
Pre-Operative Diagnosis: Complete heart block
Post-Operative Diagnosis: Complete heart block
Procedure Performed: LEFT BUNDLE BRANCH PACING WITH DUAL CHAMBER PERMANENT PACEMAKER IMPLANTATION.
Performing physician:
Daja Zimmerman MD
Anesthesia:
See anesthesia records
Detailed Description of the Procedure:
The patient was identified using hospital identification and informed consent obtained for the procedure. The risks were explained to the patient and the family including, but not limited to: Bleeding, infection, arrhythmia, stroke,
vascular/cardiac/lung puncture, surgery, pacemaker dependency/device malfunction. All questions were answered.
Anesthesia service provided sedation as reported separately. Antibiotics administered IV for risk of bacterial colonization. After obtaining informed and written consent, the patient was brought to the electrophysiology laboratory.
The initial rhythm was sinus rhythm with Mobitz II heart block.
A timeout was performed immediately before the procedure. The left chest was prepped from the nipple to the angle of the jaw with chlorhexidine, and draped following sterile technique in usual routine.�
A surgical pause and time out was performed immediately prior to the procedure with review of her medical history, recent labs, allergies and medications with site of procedure identified and consent noted in the chart. Antibiotics pre operatively
given. All team members concurred.
The procedure site was meticulously prepared with surgical scrub and allowed to dry with no pooling. Sterile draping was applied to cover the procedure site. The image intensifier was draped with sterile bag and positioned over the patient.
The left infraclavicular region was prepped and draped in the usual sterile fashion. Local anesthesia was administered subcutaneously using 1% lidocaine / Bupivacaine. The left cephalic vein cutdown was done and guide wires were advanced to the
inferior vena cava (IVC) under flouro guidance.
A subcutaneous pocket was created with blunt dissection and use of electrocautery. Hemostasis was excellent.
Attention then was turned to the left bundle branch pacing lead. The guide wire was advanced to the RA and was advanced to the RV. The preformed curved long hemostatic peel away HIS sheath was advanced into the RV cavity. A left bundle pacing wire
was advanced into the sheath to the tip with ventricular signals noted with unipolar manner. The sheath with the pacing lead was moved deeper into the RV cavity from the HIS location on the septum at a more inferior and distal to the HIS signals.
Once adequate signals were noted on the electrograms of the pacing lead in the sheath with W pattern signals on the RV septum, the lead was advanced and clockwise turns were done under fluoroscopic guidance. The septum was engaged and the lead was
paced intermittently after every 2-3 turns. The Impedance of the lead was measured that remained stable around 1000 Ohm and the lead was not able to advance into the septum. The ventricular capture was monitored throughout and the captures gradually
changed from RV pacing to non-selective pacing to LBB pacing with R wave on V1.
With RBBB pattern noted on the pacing lead, it was decided to accept the location as optimal location. The long guiding sheath was cut and removed from the RV without change in lead position, impedance, sensing, or capture. The lead was sutured to
the underlying pectoralis fascia with 2-0 Ethibond stitches.
The RA lead was anchored in the right atrial appendage with engaging the active-fixation apparatus. There was excellent sensing, pacing, and impedance from the leads, with no diaphragmatic stimulation at 10 V output.�Bovie cautery, antibiotics, and
fluoroscopy were used.
The leads were attached to the pulse generator in standard configuration with acceptable sensing and threshold parameters. The pocket was irrigated with antibiotic solution; the pocket was inspected with no active bleeding noted. The device and the
leads were placed in the pocket.
A Tyrx pouch was placed around the device and the leads.
Deep subcutaneous tissues were closed with 3 layers of 2-0 V loc sutures; and the dermis was reopposed using a running 4-0 Monocryl subcuticular suture. Sponge counts / sharp counts were appropriate.
Procedure End:
The procedure was tolerated well. Aquacel bandaged was applied. A pressure dressing was applied.
Estimated Blood loss:
5 cc
Specimens Removed:
No cultures and no specimens were obtained. No intraoperative pathology was identified.
Urine output:
None
Packs / Drains/ Tubes:
None
Instrument / Sponge Count Correct:
Yes
Complications of the Procedure:
None
Condition of Patient at Time of Transfer:
Hemodynamically stable with no neurological or vascular compromise.
Device information:�
Generator: Agilyx; Model: W1DR01; Serial # [id number]�
Atrial Lead: Medtronic; Model: 5076-45; Serial # [id number]
Measured data in the right atrium was sensing of 2.5 mV, impedance of 703 ohms and threshold of 1.5 V at 0.4ms�
LBB pacing lead: Medtronic; Model: 3830-69; Serial # [id number]
Measured data on the RV lead was sensing of 18 mV, impedance of 703 ohms and threshold of 0.5V at 0.4ms
PROGRAMMING PARAMETERS:�
Arturo parameter settings were DDDR 60-130 �
����������� Paced AV interval: 180ms
����������� Sensed AV interval: 150 ms.
����������� Rate Adaptive A-V Interval: off
����������� Mode switch ON
�
Summary:
Successful implantation of MRI compatible LBB pacing dual chamber pacemaker.
Results/Recommendations:
-Please follow up CXR�
1. Please provide patient with adequate pain control�
Instructions to be given to patient:�
- Please follow up with [facility] at [address] [place] [address] ([phone]) to get your wound checked in 2 weeks of your discharge. Then follow with
- Do not wet incision site until after it is evaluated at cardiology clinic. No baths or showers until then. Sponge baths / showers are OK but dab dry the dressing after it is wet.�
- Allow 'steri strips' to fall off on their own�
- Do not lift left elbow above shoulder, particularly with sudden jerking movements, for 1 month�
- Do not lift anything weighing more than 5 pounds with the left arm for 1 month�
- If you notice any fevers, shortness of breath, lightheadedness, chest pain, or worsening swelling in the wound site, please contact the arrhythmia clinic, contact your avaya engineer, or present to the hospital for evaluation.�
Daja Zimmerman MD
Electrophysiology
[2024-12-15] MEDS: TOPROL XL 25 MG PO (11:15)
--- NOTE | 2024-12-15 11:15 | PTCARENOTE ---
Pt received from roofing laborer s/p PPM. Pt resting in bed. Pt alert and oriented x4. Denies pain, shortness of breath, and nausea. FITZGERALD with equal strength. 100% v-paced with rates in the 90s. BP 117/55. Bilateral radial and DP pulses palpable. +1 ankle
edema noted. POX 94% on RA. Lungs clear throughout. No cough noted. Abdomen soft, round, nontender. +BS. B/l groins soft, nontender dressings CDI. Left upper chest wall incision covered with aquacel-CDI. PIV x2 intact. Pt tolerating bedrest at this
time, educated on expected time OOB 1215. CT PA at bedside to eval patient.
[2024-12-15] MEDS: TYLENOL 650 MG PO (11:34)
--- NOTE | 2024-12-15 14:34 | W.DCSUMMARY ---
Discharge Summary
Discharge Data
Date of Admission: 12/13/24
Date of Discharge: 12/15/24
Total time spent discharging patient (in min): 30
-
Pending Results: No
Hospital Course
Primary care physician:
Ginna Peralta
Outpatient concrete pile driver operator:
Isaac Hutchinson
Inpatient consultants:
[facility]
Procedures:
1. 12/13/24: Right trans femoral TAVR with a #26 Casey S3 Ultra Avelar TAVR valve
Admission Diagnosis:
- Mild MR, MVP
- Hx Right bundle branch block
- Hx Left anterior fascicular block
- HTN/Hyperlipidemia
- Ascending aorta very mildly dilated at 3.7 cm
- EF 60-65%
- No significant CAD
- GERD
- b/l THR
- hx bladder Urolift per p
Discharge Diagnoses:
- Same as above
- Acute postop new LBBB and 1st degree AVB with transient CHB requiring PPM placement
- Acute postop urinary retention- s/p straight cath x3
HPI: the patient is a 79-year-old female who was initially seen at [facility] for severe aortic stenosis secondary to heavily calcified and restricted bicuspid aortic valve with a peak gradient of 72 and mean gradient of 46 mmHg. Aortic
valve area on echocardiogram was 0.6 with trace AI. There was also trace mitral valve insufficiency was some mild prolapsing. Compared to the study in 2023, there has been progression and or aortic valve stenosis with elevation of both peak and
mean pressures. She had evidence of concomitant aortic dilatation at 3.7 cm with preserved left ventricular ejection fraction. From symptomatology standpoint she describes feeling a little more tired and short of breath with exertion. Over the
last year she feels that her clinical status has worsened. Left heart catheterization was scheduled and revealed nonobstructive coronary artery disease and severe aortic stenosis based on peak to peak gradient of 47 mmHg with an elevated LVEDP of
25 mmHg. While in the office both TAVR and SAVR were explained to the patient with pros and cons of both. Utilizing shared decision making, she was scheduled and consented for TAVR.
Hospital course: The patient was admitted via same-day admissions on 12/13/2024, taken to the [facility] and underwent right sided trans TAVR by Dr. Mary Nice. Upon deployment of valve she developed complete heart block with partial resolution while
in the [facility]. A temporary pacemaker wire was placed. While in the recovery area if she developed sinus rhythm with a left bundle branch block. She was on Levophed at 2 and required straight cath due to urinary retention. On postop day 1 she
was in sinus rhythm and her temporary pacer wire was removed along with her venous sheath. Her echo cardiogram was done which showed an acceptable result from her TAVR procedure. She developed Mobitz 2 heart block and urgent pacemaker was going to
be performed however the patient had been already so it was put off till the following day. The patient did maintain her own heart rate at a 2-1 block in the 50s. Blood pressure was unaffected. On postop day 2 she was taken to the cath suite and
underwent permanent pacemaker placement with a dual-chamber system. She tolerated that procedure well and tries transferred back to the CVICU. She was slightly tachycardic in the low 100s and started on Toprol-XL. Her heart rate responded nicely
and dropped to the 80s to low 90s. With the agreement of cardiology it was felt that the patient could safely be discharged home. She was given explicit instructions on wound care physical activity and diet. Medications were sent to [facility]
Home medication changes:
Continue:
aspirin 81 mg chewable tablet (Aspirin Childrens) 81 mg PO DAILY Blood Clot Prevention/Tx 11/20/24
atorvastatin 20 mg tablet 20 mg PO HS High Cholesterol 11/20/24
calcium 600 mg capsule 600 mg PO DAILY Supplement 11/20/24
conjugated estrogens 0.625 mg/gram vaginal cream (Premarin) 0.625 mg vaginal DIRECTED Hormonal Agent 11/20/24
acetaminophen 650 mg tablet,extended release 650 mg PO Q12H Pain 12/03/24
inulin 1.7 gram chewable tablet (Fiber Gummies) 1 g PO DAILY Gastrointestinal Issue 12/03/24
multivitamin 1 tab PO DAILY Supplement 12/03/24
metoprolol succinate 25 mg tablet,extended release 24 hr 25 mg PO BID #60 tabs 12/15/24
New:
Added metoprolol succinate 25 mg tablet,extended release 25 mg PO BID
Discharge Plan
-
Patient Disposition: Home (Routine Discharge)
Discharge Diagnosis/Procedures: R TF TAVR #26mm Avelar (12/13/24), Pacemaker implant (12/15/24)
Condition: Good
Diet: Low Fat, Low Cholesterol and 2 Gram Sodium
Activity: As tolerated
Driving Restrictions: No driving for 1 week
Bathing Restrictions: OK to Shower
Others Tests: Please call your concrete pile driver operator to schedule a 30-day follow echocardiogram
Other Services: Cardiac Rehab
Wound Care: No lotions, powders, or creams to puncture sites
Specialty Instructions: Weigh Daily- Call MD for wt gain/loss 3 lbs overnight/5 lbs in 1 week
Instructions: Transcatheter aortic valve implantation (DC)
Stand Alone Forms: DC Inst - Implanted Device
Referrals:
[facility]- [facility] [Provider Group] - 12/21/24 1:40 pm
Referral Note: Incision check appointment
CT Transitional Care Nurse [Outside]
Referral Note: The Cardiothoracic Transitional Care Nurse will call you to set up a visit in 1-2 days.
[facility] [Outside]
Referral Note: Cardiac Rehab Orientation appointment is on Wednesday January 15, 2025 @ 11:00am.
The Cardiac Rehab gym is located on the first floor of the [facility].
Isaac Hutchinson MD [Non-Admitting Privileges, Internal Medicine] - 01/17/25 10:45 am
Referral Note: Feb 01 10:45am appointment cancelled
Ginna Rahman MD [Family Provider, Internal Medicine]
Prescriptions:
New
metoprolol succinate 25 mg Tablet Extended Release 24 Hr
25 mg PO BID Qty: 60 2RF
Continued
calcium 600 mg Capsule
600 mg PO DAILY
atorvastatin 20 mg Tablet
20 mg PO HS
Premarin 0.625 mg/gram Cream
0.625 mg VAGINAL DIRECTED
aspirin [Aspirin Childrens] 81 mg Tablet,Chewable
81 mg PO DAILY
multivitamin Tablet
1 tab PO DAILY
acetaminophen 650 mg Tablet Extended Release
650 mg PO Q12H
Fiber Gummies 1.7 gram Tablet,Chewable
1 g PO DAILY
Discharge Orders:
Discharge Patient (As Directed); Ordered 12/15/24
Ordered By: Fredo Cannon
Care Plan Goals
Care Plan Goals:
Problem: Readiness for enhanced knowledge related to diagnosis and treatment plan
Goal: Understand your diagnosis and treatment plan needs, including medications if applicable.
Instructions: Know your diagnosis, underlying causes and treatment plan options, including medications if applicable. Consult with your health care team to learn about your diagnosis and treatment plan, including medications if applicable.
Discharge Date and Time
Discharge Date/Time: 12/15/24 17:45
Print Language: MOZAMBICAN
--- NOTE | 2024-12-15 17:41 | PTCARENOTE ---
pt discharge home, discharge instructions given and went over with pt and , no questions asked, pt left in wheelchair with
== END 2024-12-15 17:45 | disposition home or self-care (01) | DRG 267 ==
LOC: CVICU 09:20
PROVIDERS: Internal Medicine Cardiovascular Disease; Nurse Practitioner; ADMITTING PHYSICIAN Thoracic Surgery (Cardiothoracic Vascular Surgery); ATTENDING PHYSICIAN Student in an Organized Health Care Education/Training Program; CONSULT PHYSICIAN Internal Medicine Cardiovascular Disease; FAMILY PHYSICIAN Internal Medicine
PROC: 02RF38Z Replacement of Aortic Valve with Zooplastic Tissue, Percutaneous Approach (ICD-10-PCS; 2024-12-13)
PROC: 0JH606Z Insertion of Pacemaker, Dual Chamber into Chest Subcutaneous Tissue and Fascia, Open Approach (ICD-10-PCS; 2024-12-15)
PROC: 02H63JZ Insertion of Pacemaker Lead into Right Atrium, Percutaneous Approach (ICD-10-PCS; 2024-12-15)
PROC: 02HK3JZ Insertion of Pacemaker Lead into Right Ventricle, Percutaneous Approach (ICD-10-PCS; 2024-12-15)
DX: I35.0 Nonrheumatic aortic (valve) stenosis (principal); I44.2 Atrioventricular block, complete; I45.2 Bifascicular block; I49.2 Junctional premature depolarization; I34.1 Nonrheumatic mitral (valve) prolapse; E78.00 Pure hypercholesterolemia, unspecified; K21.9 Gastro-esophageal reflux disease without esophagitis; I77.810 Thoracic aortic ectasia; R33.9 Retention of urine, unspecified; Z79.82 Long term (current) use of aspirin; Z79.899 Other long term (current) drug therapy; Z82.49 Family history of ischemic heart disease and other diseases of the circulatory system
CPT/HCPCS: 33208; 33361; 36415; 71045; 71046; 80048; 80053; 81003; 81015; 82248; 83036; 83880; 85025; 85027; 85347; 85610; 86850; 86900; 86901; 87070; 93005; 93308; 93321; 93325; C1760; C1769; C1785; C1887; C1898; Q9967

== ENCOUNTER 2025-02-08 16:44 | Outpatient (RCR) | payer OTHER, SELFPAY | END 2025-02-08 23:59 | disposition home or self-care (01) | LOC: CRHB 16:44 | PROVIDERS: ATTENDING PHYSICIAN Internal Medicine Cardiovascular Disease | DX: Z95.2 Presence of prosthetic heart valve (principal) | CPT/HCPCS: 93797; 93798; G0422; G0423 ==

== ENCOUNTER → 2025-02-11 11:01 | Outpatient (REF) | payer OTHER, SELFPAY | LOC: RAD 11:01 | PROVIDERS: ATTENDING PHYSICIAN Internal Medicine Critical Care Medicine; FAMILY PHYSICIAN Internal Medicine | DX: R91.8 Other nonspecific abnormal finding of lung field (principal) | CPT/HCPCS: 71250 ==

== ENCOUNTER 2025-03-08 15:24 | Outpatient (RCR) | payer OTHER, SELFPAY | END 2025-03-08 23:59 | disposition home or self-care (01) | LOC: CRHB 15:24 | PROVIDERS: ATTENDING PHYSICIAN Internal Medicine Cardiovascular Disease | DX: Z95.2 Presence of prosthetic heart valve (principal) | CPT/HCPCS: G0422; G0423 ==

== ENCOUNTER 2025-04-08 14:31 | Outpatient (RCR) | payer OTHER, SELFPAY | END 2025-04-08 23:59 | disposition home or self-care (01) | LOC: CRHB 14:31 | PROVIDERS: ATTENDING PHYSICIAN Internal Medicine Cardiovascular Disease | DX: Z95.2 Presence of prosthetic heart valve (principal) | CPT/HCPCS: G0422; G0423 ==